=== PATIENT | female | born 1980 | race Caucasian/White ===

== ENCOUNTER → 2020-06-06 11:21 | Outpatient (BNVA) | payer MEDICARE, MEDICAID, SELFPAY | PROVIDERS: PCP Internal Medicine; Referring Provider Internal Medicine; Visit Provider Orthopaedic Surgery | DX: Z76.89 Persons encountering health services in other specified circumstances (principal) ==

== ENCOUNTER 2020-06-13 13:56 | Outpatient (REF) | payer OTHER, SELFPAY ==
--- NOTE | 2020-06-13 14:09 | ECG_ITS ---
Test Reason : PREPROC EXAM Blood Pressure : / mmHG Vent. Rate : 062 BPM Atrial Rate : 062 BPM P-R Int : 132 ms QRS Dur : 082 ms QT Int : 406 ms P-R-T Axes : 077 082 071 degrees QTc Int : 412 ms Normal sinus rhythm with sinus arrhythmia Normal ECG When compared with ECG of 19-SEP-2018 17:31, Vent. rate has decreased BY 49 BPM Nonspecific T wave abnormality, improved in Anterior leads Referred By: Damion Smith Electronically Signed By:ANDREW ZALDIVAR MD
[2020-06-13 15:21] LABS: MANUAL DIFF FLAG NO
[2020-06-13 15:33] LABS: Basophils Absolute Auto 0.1 X10*3/uL (0.0-0.2); Basophils Percent Auto 0.4 % (0-2); Eosinophils Absolute Auto 0.1 X10*3/uL (0.0-0.4); Eosinophils Percent Auto 0.4 % (0-4); Hematocrit 42.5 % (37-47); Hemoglobin 14.2 g/dl (12.0-16.0); Imm Gran Abs Auto 0.04 X10*3/uL (0.00-0.03); Imm Gran Pct Auto 0.3 % (0.0-0.4); Lymphocytes Absolute Auto 3.3 X10*3/uL (1.2-4.9); Lymphocytes Percent Auto 24.4 % (20-40); Mean Corpuscular HGB Conc 33.4 g/dl (31.0-35.0); Mean Corpuscular Hemoglobin 29.7 pg (27.0-33.0); Mean Corpuscular Volume 88.9 fL (80-98); Mean Platelet Volume 8.8 fL (9.4-12.3); Monocytes Percent Auto 7.1 % (2-11); Neutrophils Absolute Auto 9.1 X10*3/uL (2.0-8.3); Neutrophils Percent Auto 67.4 % (45-73); Platelet Count 435 X10*3/uL (160-400); Red Blood Count 4.78 X10*6/uL (4.20-5.50); Red Cell Distribution Width 13.4 % (11.0-16.0); White Blood Count 13.5 X10*3/uL (4.8-10.8)
== END 2020-06-13 13:57 | disposition home or self-care (01) ==
LOC: HO.LAB 13:56
PROVIDERS: PCP Internal Medicine; Visit Provider Physician Assistant
DX: Z01.810 Encounter for preprocedural cardiovascular examination (principal); Z01.818 Encounter for other preprocedural examination
CPT/HCPCS: 36415; 85025; 93005

== ENCOUNTER 2020-06-24 14:12 | Outpatient (REF) | payer OTHER, SELFPAY ==
--- NOTE | 2020-06-24 14:13 | XR_ITS ---
EXAMINATION: XR KNEE, LEFT CLINICAL INFORMATION: Unilateral posttraumatic osteoarthritis. COMPARISON: 05/05/2020 TECHNIQUE: Lateral and sunrise views of the left knee. FINDINGS: There is no evidence of acute fracture or dislocation of the left knee. There is significant narrowing of the medial and lateral joint space compartments. Tunneling defect seen involving the proximal tibia. Distal femoral plate in place. There is a small left knee effusion. There is some spurring about the lateral facet of the patellofemoral joint. Prominent vascular calcifications are seen. XR/XR knee LT 2V IMPRESSION: Degenerative change involving all 3 compartments of the left knee. Small left knee effusion.
== END 2020-06-24 14:13 | disposition home or self-care (01) ==
LOC: HO.HOSX 14:12
PROVIDERS: PCP Internal Medicine; Visit Provider Physician Assistant
DX: Z01.818 Encounter for other preprocedural examination (principal); M17.32 Unilateral post-traumatic osteoarthritis, left knee; Z87.891 Personal history of nicotine dependence; Z77.22 Contact with and (suspected) exposure to environmental tobacco smoke (acute) (chronic)
CPT/HCPCS: 73560; 99212

== ENCOUNTER 2020-06-28 05:53 | Inpatient (IN) | payer OTHER, SELFPAY ==
[2020-06-14 11:12] VITALS: BMI 20.5
[2020-06-14 12:42] VITALS: BP 129/80; PULSE 82; RESP 16; O2SAT 98; BMI 21.8
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
[2020-06-14 15:18] LABS: Anion Gap 12 (12-20); Blood Urea Nitrogen 7 mg/dL (9-16); Calcium 9.4 mg/dL (8.4-10.2); Carbon Dioxide 27 mmol/L (22-29); Chloride 103 mmol/L (96-108); Creatinine Clr Calc Pharmacy 82.5; Estimated Glomerular Filt Rate > 60; Glucose Random 80 mg/dL (60-115); Potassium 4.4 mmol/l (3.3-5.1); Sodium 138 mmol/L (135-145)
[2020-06-15 09:45] LABS: MRSA Nasal PCR POSITIVE (Negative); SA Nasal PCR POSITIVE (Negative)
[2020-06-28] VITALS (15 sets, daily range): BP systolic 92–139; BP diastolic 45–87; PULSE 52–93; RESP 14–20; TEMP 36–37.1; O2SAT 97–100
--- NOTE | 2020-06-28 | XR_ITS ---
EXAMINATION: PORTABLE X-RAY KNEE, LEFT CLINICAL INFORMATION: 40-year-old female patient status post total knee arthroplasty. Severe pain. COMPARISON: X-rays of the left knee done earlier in the day. TECHNIQUE: AP and crosstable lateral views of the left knee. of the left knee. FINDINGS: The hardware from the total knee arthroplasty remains in the normal expected position. No fracture. Pockets of intra-articular and subcutaneous air are present in the soft tissues. A femoral Endobutton was pre-existing prior to the knee replacement. XR/XR knee LT 2V IMPRESSION: Postop knee. No evidence of hardware failure.
--- NOTE | 2020-06-28 | XR_ITS ---
EXAMINATION: XR KNEE, LEFT CLINICAL INFORMATION: Status post total knee arthroplasty. COMPARISON: Standing AP knees and left knee radiographs 06/24/2020 TECHNIQUE: Left knee is imaged in AP and crosstable lateral views for 2 views. FINDINGS: There is left total knee arthroplasty since prior exam. The hardware is intact and in normal alignment. There is no fracture or dislocation. Suprapatellar effusion overlying skin ovi are seen as expected. There is no fracture or dislocation or destructive process. XR/XR knee LT 2V IMPRESSION: Status post left total knee arthroplasty.
[2020-06-28] MEDS: Gabapentin 600 MG TABLET PO (06:23)
[2020-06-28 06:34] LABS: COVID-19 Test Negative (Negative)
[2020-06-28] MEDS: vancomycin HCL 1,000 MG in 0.9 % Sodium Chloride 250 ML 270 MG IV ×2 (07:12→20:21)
[2020-06-28] MEDS: Lactated Ringers 1,000 ML 100 ML IVCONT (07:12)
--- NOTE | 2020-06-28 07:25 | MHC.SHP ---
Pre-Procedural Eval Section A The patient is an INPATIENT: No Changes since office visit: Yes Patient answered all questions; No Cold of Flu in the past 2 weeks, No New Medical Problems and No Changes in Medication The History & Physical has been completed within 30 days and I have reviewed it.: Yes Section B Chief Complaint: Total Left Knee Arthoplasty Allergies: Allergies Allergy/AdvReac Type Severity Reaction Status Date / Time codeine [Codeine] Allergy Severe ANAPHYLAXIS Verified 06/24/20 14:29 ibuprofen [From MOTRIN] Allergy Severe ANAPHYLAXIS Verified 06/24/20 14:29 NSAIDS (Non-Steroidal Allergy Severe ANAPHYLAXIS Verified 06/24/20 14:29 Anti-Inflamma [NSAIDS] tramadol [TRAMADOL] Allergy Intermediate SEIZURE Verified 06/24/20 14:29 Plan Patient has been examined and remains a candidate for the planned procedure
--- NOTE | 2020-06-28 09:17 | PM.OP ---
Brief Operative Note Date of procedure: 06/28/20 Pre-op diagnosis: rightk nee OA Post-op diagnosis: same Procedure: right TKA Implants: [place] [employer] [employer] press fit CR with a 09/20/09a Surgeon: Elvin Logan MD Anesthesia: regional and spinal Building Rental Manager: Damion Smith Estimated blood loss (mL): 150 IV fluids (mL): 1,000 Pathology: other Condition: stable Disposition: PACU
--- NOTE | 2020-06-28 09:53 | OP_ITS ---
SURGEON: Elvin Logan MD INDICATIONS: 40-year-old woman with valgus posttraumatic osteoarthritis ongoing with unremitting pain and refractory to conservative care, who was consented to undergo arthroplasty. PREOPERATIVE DIAGNOSIS: Left knee osteoarthritis. POSTOPERATIVE DIAGNOSIS: Left knee osteoarthritis. PROCEDURE PERFORMED: Left knee arthroplasty. ESTIMATED BLOOD LOSS: 150 mL. COMPLICATIONS: None known. ANESTHESIA: Regional and spinal. ASSISTANTS: CHELLE Valero. SPECIMENS: PROCEDURE IN DETAIL: The patient was brought to the operating room, placed supine on the operative table and prepped and draped in standard sterile fashion. Time-out was called to identify proper site, proper procedure, proper surgeon. IV antibiotics per weight was administered. I began by making a curvilinear incision over the knee. She had a prior ACL tibial scar, which had to be included in the incision. I dissected down the retinaculum and performed a medial parapatellar arthrotomy. I resected the fat pad, performed a small medial peel, everted the patella and flexed up the knee. She had eburnation of the really the entire knee apart from the central portion of the trochlea. I then used Reyes's line to drill my intramedullary femoral guide and then made my distal femoral cut in 5 degrees of valgus. I then sized a size 2 femur, made my anterior, posterior, and chamfer cuts, making sure not to notch and posterior soft tissues were protected at all times. Aquamantys was used for hemostasis. Once this was done, I turned my attention the tibia. I took 2 mm off the lateral side in line with the tibial crest, protecting posterior soft tissue in the PCL. Once this was done, I placed an extension block and took knee up to extension. I was happy with the bony resection. Therefore, I trialed a 2 tibia with a 2 provisional femur and took the knee through range of motion and was happy with the range and stability. Therefore, the undersurface of the patella was resurfaced and a 29A patella was placed. Again, I took the knee through range of motion, I was happy with the tracking. I then drilled my lug holes and prepared my tibial canal and then all instrumentation was removed and I malleted in the femur and tibia in standard fashion and then applying axial compression. Patella was also press-fit and I trialed a 9 and 11. I was happiest. I felt that the 10 would be ideal and a 10 was placed. A 3-minute iodine soak with local TXA was applied. Layered closure with ovi on the skin was performed. The patient was placed in sterile dressing, extubated, brought to recovery room in stable condition. There were no known complications. FLUIDS: 1 L. IMPLANTS: [place] [employer], press-fit CR 09/20/09. MD SHIV Foy/MELISSA / [id number]
[2020-06-28] MEDS: Dextrose 5 % and 0.45 % NaCl 1,000 ML 80 ML IVCONT (12:51)
--- NOTE | 2020-06-28 13:16 | MHC.CM.PN ---
PATIENT IS INDEPENDENT WITH HER ACTIVITIES NO DME OR VNA SERVICES. CASE MANAGEMENT FOLLOWING FOR HER DISCHARGE NEEDS. IMM 06/28 IN CHART.
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
[2020-06-28] MEDS: HYDROmorphone HCl 0.5 MG/0.5 ML SYRINGE 0.25 MG IVPUSH ×2 (14:06→18:45)
[2020-06-28] MEDS: oxyCODONE HCl Immed Release 5 MG TABLET 10 MG PO ×2 (14:58→19:24)
[2020-06-28] MEDS: LORazepam 1 MG TABLET PO ×2 (15:11→21:40)
[2020-06-28] MEDS: Scopolamine 1.5 MG PATCH.TD.3 EAR-BEHIND (15:43)
[2020-06-28] MEDS: HYDROmorphone HCl 0.5 MG/0.5 ML SYRINGE IVPUSH ×3 (17:21→23:57)
[2020-06-28] MEDS: hydrOXYzine HCL 25 MG TABLET PO ×2 (17:22→21:40)
[2020-06-28] MEDS: Acetaminophen 325 MG TABLET 650 MG PO ×2 (18:47→23:58)
[2020-06-28] MEDS: oxyCODONE HCl ER 10 MG TAB.ER.12H PO (21:40)
[2020-06-29] MEDS: 0.9 % Sodium Chloride Flush 3 ML SYRINGE IVFLUSH ×2 (00:04→15:59)
[2020-06-29] MEDS: oxyCODONE HCl Immed Release 5 MG TABLET 10 MG PO ×5 (01:19→23:55)
[2020-06-29] MEDS: HYDROmorphone HCl 0.5 MG/0.5 ML SYRINGE IVPUSH ×7 (03:33→22:34)
[2020-06-29] MEDS: Dextrose 5 % and 0.45 % NaCl 1,000 ML 80 ML IVCONT (03:36)
[2020-06-29 04:00] VITALS: BP 136/77; PULSE 88; RESP 18; TEMP 37.1; O2SAT 99
[2020-06-29] MEDS: Acetaminophen 325 MG TABLET 650 MG PO ×3 (06:45→18:53)
[2020-06-29 06:50] LABS: Basophils Percent Auto 0.1 % (0-2); Eosinophils Percent Auto 0.1 % (0-4); Hematocrit 32.8 % (37-47); Imm Gran Abs Auto 0.07 X10*3/uL (0.00-0.03); Imm Gran Pct Auto 0.5 % (0.0-0.4); Lymphocytes Absolute Auto 1.4 X10*3/uL (1.2-4.9); Lymphocytes Percent Auto 10.2 % (20-40); MANUAL DIFF FLAG SCAN; Mean Corpuscular HGB Conc 33.5 g/dl (31.0-35.0); Mean Corpuscular Hemoglobin 29.8 pg (27.0-33.0); Mean Corpuscular Volume 88.9 fL (80-98); Mean Platelet Volume 9.1 fL (9.4-12.3); Monocytes Absolute Auto 1.7 X10*3/uL (0.1-1.2); Neutrophils Absolute Auto 10.7 X10*3/uL (2.0-8.3); Neutrophils Percent Auto 77.1 % (45-73); Platelet Count 210 X10*3/uL (160-400); Red Blood Count 3.69 X10*6/uL (4.20-5.50); Red Cell Distribution Width 13.2 % (11.0-16.0); SCAN SMEAR FLAG 1; White Blood Count 13.9 X10*3/uL (4.8-10.8)
[2020-06-29 07:03] LABS: Anion Gap 11 (12-20); Blood Urea Nitrogen 7 mg/dL (9-16); Calcium 8.2 mg/dL (8.4-10.2); Carbon Dioxide 25 mmol/L (22-29); Chloride 104 mmol/L (96-108); Creatinine Clr Calc Pharmacy 88.7; Estimated Glomerular Filt Rate > 60; Glucose Fasting 155 mg/dL (60-99); Potassium 3.5 mmol/l (3.3-5.1); Sodium 136 mmol/L (135-145)
[2020-06-29 07:17] LABS: SLIDE REVIEW VERIFIED
[2020-06-29 07:26] VITALS: BP 132/80; PULSE 80; RESP 17; TEMP 36.6; O2SAT 99
[2020-06-29] MEDS: Escitalopram Oxalate 20 MG TABLET PO (07:43)
[2020-06-29] MEDS: LORazepam 1 MG TABLET PO ×3 (07:43→22:22)
[2020-06-29] MEDS: Amphetamine Mixed Salts 10 MG TABLET PO ×2 (07:44→14:05)
--- NOTE | 2020-06-29 07:45 | PM.PNORT ---
Subjective Subjective Interval history: POD#1 s/p LTKA. Pt. states that she had a difficult night with pain management and nausea. Was not able to work with p.t. Denies SOB chest pain but has slight nausea due to pain. Physical Exam Vital Signs: Vital Signs: Last Vital Signs Temp 97.9 F 06/29/20 07:26 Pulse 80 06/29/20 07:26 Resp 17 06/29/20 07:26 BP 132/80 06/29/20 07:26 Pulse Ox 99 06/29/20 07:26 Body Mass Index 21.8 Const: General: cooperative, healthy appearing and no acute distress Resp: Effort & Inspection: normal respiratory effort and able to speak in complete sentences Cardio: Rate: regular rate Peripheral pulses: Peripheral pulses 2+ throughout GI: Inspection: Yes normal to inspection Palpation (GI): Soft to palpation Skin: General skin exam: no rashes or lesions noted Extrem: Other: Lt knee no redness ecchymosis or drainage. Dressing is clean dry and intact. NVI. Progress Note: A&P Assessment and plan (1) Status post left knee replacement: Status: Acute Assessment and Plan: Continue pain mgmnt Begin ASA dvt ppx today begin PT for LT TKA Dispo planning-Pending PT eval, pain mgmnt Fall Risk Details Current Medications: Current Medications Generic Name Dose Route Start Last Admin Trade Name Freq PRN Reason Stop Dose Admin Acetaminophen 650 mg 06/28/20 18:30 06/29/20 06:45 Acetaminophen 325 Mg Tablet PO 650 mg Q6H MIGUEL ANGEL Administration Amphetamine/Dextroamphetamine 10 mg 06/29/20 08:00 Amphetamine Mixed Salts 10 Mg Tablet PO BID@0800,1500 [facility] Escitalopram Oxalate 20 mg 06/29/20 09:00 Escitalopram Oxalate 20 Mg Tablet PO DAILY MIGUEL ANGEL Hydromorphone HCl 0.5 mg 06/28/20 17:10 06/29/20 06:46 Hydromorphone Hcl 0.5 Mg/0.5 Ml Syringe IVPUSH 0.5 mg Q3H PRN Administration Pain, Severe (Pain Scale 7-10) Hydroxyzine HCl 25 mg 06/28/20 12:12 06/28/20 21:40 Hydroxyzine Hcl 25 Mg Tablet PO 25 mg QID PRN Administration anxiety Dextrose/Sodium Chloride 1,000 mls @ 80 mls/hr 06/28/20 12:05 06/29/20 03:36 D51/2ns IVCONT 80 mls/hr .[id number] MIGUEL ANGEL Administration Lorazepam 1 mg 06/28/20 12:05 06/28/20 21:40 Lorazepam 1 Mg Tablet PO 1 mg TID PRN Administration Anxiety Naloxone HCl 0.2 mg 06/28/20 12:05 Naloxone Hcl 0.4 Mg/Ml Vial IVPUSH Q2M PRN Excessive sedation or RR < 8 Oxycodone HCl 10 mg 06/28/20 12:05 06/29/20 04:55 Oxycodone Hcl Immed Release 5 Mg Tablet PO 10 mg Q4H PRN Administration Pain, Moderate (Pain Scale 4-6 Oxycodone HCl 10 mg 06/28/20 21:00 06/28/20 21:40 Oxycodone Hcl Er 10 Mg Tab.Er.12h PO 10 mg BID MIGUEL ANGEL Administration Senna 17.2 mg 06/28/20 12:05 Sennosides 8.6 Mg Tablet PO BEDTIME PRN Constipation Sodium Chloride 3 ml 06/28/20 16:00 06/29/20 00:04 0.9 % Sodium Chloride Flush 3 Ml Syringe IVFLUSH 3 ml QSHIFT MIGUEL ANGEL Administration Time Spent With Patient Time: Total time spent is greater than 50% in coordination of care (as documented) at patient's floor/unit and/or counseling patient: Time with patient: 15 - 24 minutes
[2020-06-29] MEDS: Aspirin 325 MG TABLET PO ×2 (09:31→21:03)
[2020-06-29] MEDS: oxyCODONE HCl ER 10 MG TAB.ER.12H PO ×2 (09:31→21:03)
--- NOTE | 2020-06-29 09:46 | HO.POSTANES ---
Post Anesthesia Evaluation Post Anesthesia Evaluation Vital Signs: Vital Signs Temp Pulse Resp BP Pulse Ox 06/29/20 07:26 97.9 F 80 17 132/80 99 06/29/20 04:00 98.8 F 88 18 136/77 99 06/28/20 23:36 98.4 F 85 18 138/79 99 Anesthesia: Spinal Mental Status: Awake Pain Control: Satisfactory Nausea/Vomiting: None Hydration: Adequate Anesthesia-Related Issues: No Anes. Related Issues
--- NOTE | 2020-06-29 11:10 | HO.PM.IMPN ---
Subjective Subjective Date of Service: 06/29/20 Interval History: the patient was seen and evaluated this morning Laying in bed, feels comfortable Denies any fever, chills or shortness of breath No reported other overnight events. Review of Systems Review of Systems: Yes all other systems are reviewed and are negative Physical Exam Vital Signs: Vital Signs: Last Vital Signs Temp 97.9 F 06/29/20 07:26 Pulse 80 06/29/20 07:26 Resp 17 06/29/20 07:26 BP 132/80 06/29/20 07:26 Pulse Ox 99 06/29/20 07:26 Body Mass Index 21.8 Constitutional : Alert, oriented, not in distress Neck : Normal inspection, Supple Cardiovascular : RRR, S1 S2, no lower extremity edema Respiratory : Good bilateral air entry, no crackles, wheezes or rhonchi Gastrointestinal: soft, lax, Normal bowel sounds, Non tender Skin : Warm/Dry, No rash complaining of pain at her knee, mild tenderness and covered with dressing. No drainage. Neurological : Alert & oriented x3, No focal deficit Objective Data Current Medications Generic Name Dose Route Start Last Admin Trade Name Johnq PRN Reason Stop Dose Admin Acetaminophen 650 mg 06/28/20 18:30 06/29/20 06:45 Acetaminophen 325 Mg Tablet PO 650 mg Q6H MIGUEL ANGEL Administration Amphetamine/Dextroamphetamine 10 mg 06/29/20 08:00 06/29/20 07:44 Amphetamine Mixed Salts 10 Mg Tablet PO 10 mg BID@0800,1500 MIGUEL ANGEL Administration Aspirin 325 mg 06/29/20 10:00 06/29/20 09:31 Aspirin 325 Mg Tablet PO 325 mg BID MIGUEL ANGEL Administration Escitalopram Oxalate 20 mg 06/29/20 09:00 06/29/20 07:43 Escitalopram Oxalate 20 Mg Tablet PO 20 mg DAILY MIGUEL ANGEL Administration Hydromorphone HCl 0.5 mg 06/28/20 17:10 06/29/20 09:31 Hydromorphone Hcl 0.5 Mg/0.5 Ml Syringe IVPUSH 0.5 mg Q3H PRN Administration Pain, Severe (Pain Scale 7-10) Hydroxyzine HCl 25 mg 06/28/20 12:12 06/28/20 21:40 Hydroxyzine Hcl 25 Mg Tablet PO 25 mg QID PRN Administration anxiety Dextrose/Sodium Chloride 1,000 mls @ 80 mls/hr 06/28/20 12:05 06/29/20 03:36 D51/2ns IVCONT 80 mls/hr .[id number] MIGUEL ANGEL Administration Lorazepam 1 mg 06/28/20 12:05 06/29/20 07:43 Lorazepam 1 Mg Tablet PO 1 mg TID PRN Administration Anxiety Naloxone HCl 0.2 mg 06/28/20 12:05 Naloxone Hcl 0.4 Mg/Ml Vial IVPUSH Q2M PRN Excessive sedation or RR < 8 Oxycodone HCl 10 mg 06/28/20 12:05 06/29/20 04:55 Oxycodone Hcl Immed Release 5 Mg Tablet PO 10 mg Q4H PRN Administration Pain, Moderate (Pain Scale 4-6 Oxycodone HCl 10 mg 06/28/20 21:00 06/29/20 09:31 Oxycodone Hcl Er 10 Mg Tab.Er.12h PO 10 mg BID MIGUEL ANGEL Administration Senna 17.2 mg 06/28/20 12:05 Sennosides 8.6 Mg Tablet PO BEDTIME PRN Constipation Sodium Chloride 3 ml 06/28/20 16:00 06/29/20 07:45 0.9 % Sodium Chloride Flush 3 Ml Syringe IVFLUSH Not Given QSHIFT [facility] Labs CBC & Chem 7: 06/29/20 06:16 06/29/20 06:17 Assessment and Plan (1) Post-traumatic osteoarthritis of left knee: Status: Acute Assessment and Plan: 40 year old women status post left knee arthroplasty. Left knee arthroplasty Management as per surgical team Pain management Complaining of significant pain in the knee Increase Dilaudid tylenol scheduled Hypotension resolved Depression/anxiety Continue home medications. History of seizure disorder Seizure precautions. DVT prophylaxis per surgical team. Thank you, Please contact hospitalist team for any further questions.
[2020-06-29 12:00] VITALS: BP 114/71; PULSE 68; RESP 19; TEMP 36.2; O2SAT 99
--- NOTE | 2020-06-29 15:11 | MHC.CM.PN ---
Addendum entered by Summer Benjamin 06/29/20 15:44: [place] SKILL ADDED TO LIST Original Note: PATIENT IS ASKING FOR A REFERRAL TO ANY FACILITY IN [place], WHERE SHE LIVES. REFERRAL PLACED TO [facility], WHICH ACCEPTS PATIENT'S INSURANCE. CASE MANAGEMENT FOLLOWING
[2020-06-29 15:31] VITALS: BP 129/74; PULSE 86; RESP 18; TEMP 36.4; O2SAT 99
[2020-06-29 19:34] VITALS: BP 134/81; PULSE 105; RESP 18; TEMP 36.4; O2SAT 99
[2020-06-29 23:21] VITALS: BP 132/68; PULSE 105; RESP 16; TEMP 37.1; O2SAT 99
[2020-06-30] MEDS: hydrOXYzine HCL 25 MG TABLET PO (01:21)
[2020-06-30] MEDS: Acetaminophen 325 MG TABLET 650 MG PO ×3 (01:21→11:23)
[2020-06-30] MEDS: HYDROmorphone HCl 0.5 MG/0.5 ML SYRINGE IVPUSH ×2 (03:36→06:30)
[2020-06-30 04:00] VITALS: BP 107/63; PULSE 111; RESP 16; TEMP 37.3; O2SAT 99
[2020-06-30 06:59] LABS: MANUAL DIFF FLAG NO
[2020-06-30 07:09] LABS: Basophils Absolute Auto 0.1 X10*3/uL (0.0-0.2); Basophils Percent Auto 0.4 % (0-2); Eosinophils Absolute Auto 0.2 X10*3/uL (0.0-0.4); Eosinophils Percent Auto 1.8 % (0-4); Hematocrit 30.3 % (37-47); Hemoglobin 10.2 g/dl (12.0-16.0); Imm Gran Abs Auto 0.05 X10*3/uL (0.00-0.03); Imm Gran Pct Auto 0.4 % (0.0-0.4); Lymphocytes Absolute Auto 2.1 X10*3/uL (1.2-4.9); Lymphocytes Percent Auto 16.2 % (20-40); Mean Corpuscular HGB Conc 33.7 g/dl (31.0-35.0); Mean Corpuscular Hemoglobin 30.3 pg (27.0-33.0); Mean Corpuscular Volume 89.9 fL (80-98); Mean Platelet Volume 9.2 fL (9.4-12.3); Monocytes Absolute Auto 1.4 X10*3/uL (0.1-1.2); Neutrophils Absolute Auto 9.1 X10*3/uL (2.0-8.3); Neutrophils Percent Auto 70.2 % (45-73); Platelet Count 179 X10*3/uL (160-400); Red Blood Count 3.37 X10*6/uL (4.20-5.50); Red Cell Distribution Width 13.3 % (11.0-16.0); White Blood Count 12.9 X10*3/uL (4.8-10.8)
[2020-06-30 07:40] LABS: Anion Gap 11 (12-20); Blood Urea Nitrogen 5 mg/dL (9-16); Calcium 7.9 mg/dL (8.4-10.2); Carbon Dioxide 27 mmol/L (22-29); Chloride 103 mmol/L (96-108); Creatinine Clr Calc Pharmacy 92.9; Estimated Glomerular Filt Rate > 60; Glucose Fasting 98 mg/dL (60-99); Potassium 3.5 mmol/l (3.3-5.1); Sodium 137 mmol/L (135-145)
--- NOTE | 2020-06-30 07:58 | PM.PNORT ---
Subjective Subjective Interval history: POD#2 s/p LTKA. Pt. states that she has nausea due to pain. Still having some difficulty with pain management. Denies SOB and chest pain. Physical Exam Vital Signs: Vital Signs: Last Vital Signs Temp 99.1 F 06/30/20 04:00 Pulse 111 H 06/30/20 04:00 Resp 16 06/30/20 04:00 BP 107/63 06/30/20 04:00 Pulse Ox 99 06/30/20 04:00 Body Mass Index 21.8 Const: General: cooperative, healthy appearing and no acute distress Resp: Effort & Inspection: normal respiratory effort and able to speak in complete sentences Cardio: Rate: regular rate Peripheral pulses: Peripheral pulses 2+ throughout GI: Inspection: Yes normal to inspection Palpation (GI): Soft to palpation Skin: General skin exam: no rashes or lesions noted Extrem: Other: No ecchymosis, redness, or drainage. Dressing is clean, dry and intact. NVI Progress Note: A&P Assessment and plan (1) Status post left knee replacement: Status: Acute Assessment and Plan: Continue pain mgmnt Continue Aspirin for dvt ppx Continue PT for LT TKA Dispo planning- P.T. recs STR/awaiting referral Fall Risk Details Current Medications: Current Medications Generic Name Dose Route Start Last Admin Trade Name Freq PRN Reason Stop Dose Admin Acetaminophen 650 mg 06/28/20 18:30 06/30/20 06:25 Acetaminophen 325 Mg Tablet PO 650 mg Q6H MIGUEL ANGEL Administration Amphetamine/Dextroamphetamine 10 mg 06/29/20 08:00 06/29/20 14:05 Amphetamine Mixed Salts 10 Mg Tablet PO 10 mg BID@0800,1500 MIGUEL ANGEL Administration Aspirin 325 mg 06/29/20 10:00 06/29/20 21:03 Aspirin 325 Mg Tablet PO 325 mg BID MIGUEL ANGEL Administration Escitalopram Oxalate 20 mg 06/29/20 09:00 06/29/20 07:43 Escitalopram Oxalate 20 Mg Tablet PO 20 mg DAILY MIGUEL ANGEL Administration Ferrous Sulfate 324 mg 06/30/20 08:00 Ferrous Sulfate 324 Mg Tablet. PO BIDWM MIGUEL ANGEL Hydromorphone HCl 0.5 mg 06/28/20 17:10 06/30/20 06:30 Hydromorphone Hcl 0.5 Mg/0.5 Ml Syringe IVPUSH 0.5 mg Q3H PRN Administration Pain, Severe (Pain Scale 7-10) Hydroxyzine HCl 25 mg 06/28/20 12:12 06/30/20 01:21 Hydroxyzine Hcl 25 Mg Tablet PO 25 mg QID PRN Administration anxiety Lorazepam 1 mg 06/28/20 12:05 06/29/20 22:22 Lorazepam 1 Mg Tablet PO 1 mg TID PRN Administration Anxiety Naloxone HCl 0.2 mg 06/28/20 12:05 Naloxone Hcl 0.4 Mg/Ml Vial IVPUSH Q2M PRN Excessive sedation or RR < 8 Oxycodone HCl 10 mg 06/28/20 12:05 06/29/20 23:55 Oxycodone Hcl Immed Release 5 Mg Tablet PO 10 mg Q4H PRN Administration Pain, Moderate (Pain Scale 4-6 Oxycodone HCl 10 mg 06/28/20 21:00 06/29/20 21:03 Oxycodone Hcl Er 10 Mg Tab.Er.12h PO 10 mg BID MIGUEL ANGEL Administration Senna 17.2 mg 06/28/20 12:05 Sennosides 8.6 Mg Tablet PO BEDTIME PRN Constipation Sodium Chloride 3 ml 06/28/20 16:00 06/30/20 00:00 0.9 % Sodium Chloride Flush 3 Ml Syringe IVFLUSH 3 ml QSHIFT MIGUEL ANGEL Administration Time Spent With Patient Time: Total time spent is greater than 50% in coordination of care (as documented) at patient's floor/unit and/or counseling patient: Time with patient: 15 - 24 minutes
[2020-06-30 08:00] VITALS: BP 114/64; PULSE 80; RESP 18; TEMP 36.2; O2SAT 99
[2020-06-30] MEDS: Aspirin 325 MG TABLET PO (08:16)
[2020-06-30] MEDS: Ferrous Sulfate 324 MG TABLET.DR PO ×2 (08:16→17:22)
[2020-06-30] MEDS: Amphetamine Mixed Salts 10 MG TABLET PO ×2 (08:16→15:43)
[2020-06-30] MEDS: 0.9 % Sodium Chloride Flush 3 ML SYRINGE IVFLUSH ×3 (08:16→15:39)
[2020-06-30] MEDS: oxyCODONE HCl Immed Release 5 MG TABLET 10 MG PO ×3 (08:17→17:21)
[2020-06-30] MEDS: Escitalopram Oxalate 20 MG TABLET PO (08:17)
[2020-06-30] MEDS: oxyCODONE HCl ER 10 MG TAB.ER.12H PO (08:17)
--- NOTE | 2020-06-30 10:10 | HO.PM.IMPN ---
Subjective Subjective Date of Service: 06/30/20 Interval History: patient feels better since yesterday is still having left knee pain feels are Dilaudid is short lived, no bowel issues no lightheadedness or dizziness, no acute issues overnight. Review of Systems General no headache , no dizziness CVS no chest pain, no palpitation. Respiratory no cough, no shortness of breath. Gastrointestinal no nausea no vomiting, no abdominal pain Physical Exam Vital Signs: Vital Signs: Last Vital Signs Temp 97.1 F 06/30/20 08:00 Pulse 80 06/30/20 08:00 Resp 18 06/30/20 08:00 BP 114/64 06/30/20 08:00 Pulse Ox 99 06/30/20 08:00 Body Mass Index 21.8 General patient resting comfortably in no acute distress. Neck is supple . CVS regular rate rhythm, Respiratory lungs clear to auscultation, no wheeze, no rhonchi. Gastrointestinal abdomen soft, nontender Extremities left knee dressing in place no drainage Neuro nonfocal Objective Data Current Medications Generic Name Dose Route Start Last Admin Trade Name Freq PRN Reason Stop Dose Admin Acetaminophen 650 mg 06/28/20 18:30 06/30/20 06:25 Acetaminophen 325 Mg Tablet PO 650 mg Q6H MIGUEL ANGEL Administration Amphetamine/Dextroamphetamine 10 mg 06/29/20 08:00 06/30/20 08:16 Amphetamine Mixed Salts 10 Mg Tablet PO 10 mg BID@0800,1500 MIGUEL ANGEL Administration Aspirin 325 mg 06/29/20 10:00 06/30/20 08:16 Aspirin 325 Mg Tablet PO 325 mg BID MIGUEL ANGEL Administration Escitalopram Oxalate 20 mg 06/29/20 09:00 06/30/20 08:17 Escitalopram Oxalate 20 Mg Tablet PO 20 mg DAILY MIGUEL ANGEL Administration Ferrous Sulfate 324 mg 06/30/20 08:00 06/30/20 08:16 Ferrous Sulfate 324 Mg Tablet. PO 324 mg BIDWM MIGUEL ANGEL Administration Hydromorphone HCl 0.5 mg 06/28/20 17:10 06/30/20 06:30 Hydromorphone Hcl 0.5 Mg/0.5 Ml Syringe IVPUSH 0.5 mg Q3H PRN Administration Pain, Severe (Pain Scale 7-10) Hydroxyzine HCl 25 mg 06/28/20 12:12 06/30/20 01:21 Hydroxyzine Hcl 25 Mg Tablet PO 25 mg QID PRN Administration anxiety Lorazepam 1 mg 06/28/20 12:05 06/29/20 22:22 Lorazepam 1 Mg Tablet PO 1 mg TID PRN Administration Anxiety Naloxone HCl 0.2 mg 06/28/20 12:05 Naloxone Hcl 0.4 Mg/Ml Vial IVPUSH Q2M PRN Excessive sedation or RR < 8 Oxycodone HCl 10 mg 06/28/20 12:05 06/30/20 08:17 Oxycodone Hcl Immed Release 5 Mg Tablet PO 10 mg Q4H PRN Administration Pain, Moderate (Pain Scale 4-6 Oxycodone HCl 10 mg 06/28/20 21:00 06/30/20 08:17 Oxycodone Hcl Er 10 Mg Tab.Er.12h PO 10 mg BID MIGUEL ANGEL Administration Senna 17.2 mg 06/28/20 12:05 Sennosides 8.6 Mg Tablet PO BEDTIME PRN Constipation Sodium Chloride 3 ml 06/28/20 16:00 06/30/20 08:16 0.9 % Sodium Chloride Flush 3 Ml Syringe IVFLUSH 3 ml QSHIFT MIGUEL ANGEL Administration Labs CBC & Chem 7: 06/30/20 06:32 06/30/20 06:32 Assessment and Plan (1) Status post left knee replacement: Status: Acute (2) Post-traumatic osteoarthritis of left knee: Status: Acute (3) Left knee pain: Status: Acute Assessment and Plan: 40 year old women status post left knee arthroplasty. Left knee arthroplasty postoperative day 2/ left knee pain persistent pain but improving, will continue Tylenol Oxy Contin and as needed oxycodone will discontinue Dilaudid, patient seen by physical therapy they are recommending short-term rehab further discharge plan as per Orthol team hematocrit dropped but stable patient asymptomatic will add iron supplement, encouraged to use incentive spirometry patient has irritable bowel syndrome, has no constipation history of asthma with no acute exacerbation Hypotension resolved Depression/anxiety Continue home medications, no acute symptoms. History of seizure disorder Seizure precautions. DVT prophylaxis per ortho team .
[2020-06-30 11:03] LABS: IDNOW Serial# 9DD0AD1C
[2020-06-30 11:04] LABS: COVID-19 Test Negative (Negative)
[2020-06-30 11:22] VITALS: RESP 20
[2020-06-30] MEDS: HYDROmorphone HCl 0.5 MG/0.5 ML SYRINGE 0.25 MG IVPUSH ×2 (11:22→15:38)
[2020-06-30 11:32] VITALS: BP 102/68; PULSE 86; RESP 19; TEMP 36.2; O2SAT 100
--- NOTE | 2020-06-30 12:37 | MHC.CM.PN ---
Addendum entered by Summer Benjamin 06/30/20 14:28: Facility does not have auth to send yet. [facility] on hold RN and patient aware. Original Note: PATIENT IS DISCHARGED TO [facility] FOR 14:30 [facility]IA [facility]. RN AND UNIT AWARE OF PLAN.
[2020-06-30] MEDS: LORazepam 1 MG TABLET PO (13:08)
--- NOTE | 2020-06-30 14:26 | P.DS_ITS ---
DS: Providers Provider Date of admission: 06/28/20 05:53 Primary care physician: Bran Vogt MD Consults: 06/28/20 12:05 Consult to Hospitalist Routine Consulting Provider: Hospitalist Reason for consultation: Post op medical management DS: Diagnosis Discharge Diagnosis (1) Status post left knee replacement: Status: Acute Problem details: Ms. Ceballos is a 40-year-old female who presented to our office for left knee pain. She is status post ACL surgery over 15 years ago. She has a history of developing Staph infections in the left knee postoperatively. Most recently she is continued to have left knee pain and difficulty with ambulation due to posttraumatic arthritis. After failing all conservative measures she had agreed to move forward with left total knee arthroplasty. DS: Medications Discharge Medications Home Medications: Home Medications Medication Instructions Recorded Confirmed hydroxyzine pamoate 25 mg capsule 25 mg PO QID PRN 06/06/20 06/14/20 dextroamphetamine-amphetamine 10 mg PO BID 06/14/20 06/14/20 [Adderall] escitalopram oxalate 20 mg PO DAILY 06/14/20 06/28/20 lorazepam 1 mg PO TID PRN 06/14/20 06/28/20 tizanidine 2 mg PO BID 06/14/20 06/14/20 Previous Rx's Medication Instructions Recorded walker #1 ea 06/24/20 acetaminophen 650 mg PO Q6H 30 Days #240 tab 06/30/20 aspirin 325 mg PO BID 14 Days #28 tab 06/30/20 oxycodone 10 mg PO Q4H PRN 7 Days #42 tab 06/30/20 sennosides [Senna Lax] 17.2 mg PO BEDTIME PRN 30 Days #60 06/30/20 tab DS: Summary Hospital Course Hospital Course: Ms Ceballos underwent a successful left total knee arthroplasty she was transferred to PACU and to the floor she recovered during her stay her vitals were stable afebrile at 97.1 labs unremarkable hemoglobin 10.2 hematocrit 30.3. Postop day 1 she was started on aspirin 325 mg p.o. b.i.d. for DVT prophylaxis she also received physical therapy services twice a day. Prior to discharge her Aquacel dressing was clean dry and intact no acute resting applied and the plan is to be transferred to a short-term rehab. Time Spent with Patient Time attestation: Total time spent providing and/or coordinating discharge services: Physical Exam Vital Signs: Vital Signs: Last Vital Signs Temp 97.1 F 06/30/20 11:32 Pulse 86 06/30/20 11:32 Resp 19 06/30/20 11:32 BP 102/68 06/30/20 11:32 Pulse Ox 100 06/30/20 11:32 Body Mass Index 21.8 Const: General: cooperative, healthy appearing and no acute distress Resp: Effort & Inspection: normal respiratory effort and able to speak in complete sentences Cardio: Rate: regular rate Peripheral pulses: Peripheral pulses 2+ throughout GI: Inspection: Yes normal to inspection Palpation (GI): Soft to palpation Skin: General skin exam: no rashes or lesions noted Extrem: Other: Left knee incision clean dry and intact. [place] intact. No erythema or drainage. Calf supple nontender. DS: Data Data Completed and Pending Completed studies during hospitalization [Text1]: Pending at discharge 06/28/20 09:08 Surgical [PTH] Routine Labs on day of discharge: 06/14/20 13:30 MRSA Nasal Screen Routine 06/14/20 13:45 Type and Screen Routine Basic Metabolic Panel Routine 06/24/20 15:15 Type and Screen Routine 06/28/20 XR knee LT 2V Stat XR knee LT 2V Stat 06/28/20 05:45 COVID-19 ID NOW ([facility]) Stat 06/28/20 05:53 Gabapentin [Neurontin] 600 mg PO PREOP ONE vancomycin HCL 1,000 mg 0.9 % Sodium Chloride [Ns] 250 ml IV PREOP 06/28/20 05:53 Providone-Iodine Solution 5% nasal swab .Both Nares x2 pre-op Surgical prep, hair removal PREOP 06/28/20 06:00 Lactated Ringers [Lr] 1,000 ml IVCONT 100 mls/hr 06/28/20 06:14 Gabapentin [Neurontin] 300 mg .ROUTE .STK-MED ONE vancomycin HCL 1,000 mg .ROUTE .STK-MED ONE 06/28/20 07:16 Midazolam HCl/PF [Versed] 2 mg IVPUSH .STK-MED ONE 06/28/20 08:15 Vital Signs Q5MIN Acetaminophen [Tylenol] 650 mg PO ONCE PRN HYDROmorphone HCl [Dilaudid] 0.25 mg IVPUSH Q5M PRN ondansetron HCL [Zofran] 4 mg IVPUSH ONCE PRN oxyCODONE HCl Immed Release [Roxicodone] 5 mg PO ONCE PRN 06/28/20 08:50 Bupivacaine MPF 0.5 % [Sensorcaine MPF 0.5% 30 ML] 30 ml .ROUTE .STK-MED ONE Lidocaine HCl 2 % MPF [Xylocaine 2 % MPF] 5 ml .ROUTE .STK-MED ONE propofoL [Diprivan] 200 mg IVPUSH .STK-MED ONE 06/28/20 08:51 Phenylephrine HCL 1,000 mcg IVPUSH .STK-MED ONE Tranexamic Acid [Cyklokapron] 1,000 mg .ROUTE .STK-MED ONE 06/28/20 09:04 Tranexamic Acid [Cyklokapron] 1,000 mg .ROUTE .STK-MED ONE 06/28/20 09:08 Surgical [PTH] Routine 06/28/20 09:40 Transfer Order Routine 06/28/20 12:05 Acetaminophen [Tylenol] 650 mg PO Q6H PRN Dextrose 5 % and 0.45 % NaCl [D51/2Ns] 1,000 ml IVCONT 80 mls/hr HYDROmorphone HCl [Dilaudid] 0.25 mg IVPUSH Q4H PRN 06/28/20 12:05 Vital Signs Q4H 06/28/20 15:25 Scopolamine [Transderm-Scop] 1.5 mg EAR-BEHIND ONCE ONE 06/28/20 17:10 HYDROmorphone HCl [Dilaudid] 0.5 mg IVPUSH Q3H PRN 06/28/20 18:21 HYDROmorphone HCl [Dilaudid] 0.25 mg IVPUSH ONCE ONE 06/28/20 20:00 vancomycin HCL 1,000 mg 0.9 % Sodium Chloride [Ns] 250 ml IV POSTOP 06/28/20 20:13 vancomycin HCL 1,000 mg .ROUTE .STK-MED ONE 06/28/20 21:00 Amphetamine Mixed Salts [Adderall] 10 mg PO BID 06/29/20 06:16 Complete Blood Count Auto Diff DAILY@0600 SLIDE REVIEW Routine 06/29/20 06:17 Basic Metabolic Panel Fasting DAILY@0600 06/30/20 06:32 Basic Metabolic Panel Fasting DAILY@0600 Complete Blood Count Auto Diff DAILY@0600 06/30/20 10:30 COVID-19 ID NOW ([facility]) Stat Laboratory Last Values WBC 12.9 X10*3/uL (4.8-10.8) H 06/30/20 06:32 RBC 3.37 X10*6/uL (4.20-5.50) L 06/30/20 06:32 Hgb 10.2 g/dl (12.0-16.0) L 06/30/20 06:32 Hct 30.3 % (37-47) L 06/30/20 06:32 MCV 89.9 fL (80-98) 06/30/20 06:32 MCH 30.3 pg (27.0-33.0) 06/30/20 06:32 MCHC 33.7 g/dl (31.0-35.0) 06/30/20 06:32 RDW 13.3 % (11.0-16.0) 06/30/20 06:32 Plt Count 179 X10*3/uL (160-400) 06/30/20 06:32 MPV 9.2 fL (9.4-12.3) L 06/30/20 06:32 Immature Gran % (Auto) 0.4 % (0.0-0.4) 06/30/20 06:32 Neut % (Auto) 70.2 % (45-73) 06/30/20 06:32 Lymph % (Auto) 16.2 % (20-40) L 06/30/20 06:32 [place]ison % (Auto) 11.0 % (2-11) 06/30/20 06:32 Eos % (Auto) 1.8 % (0-4) 06/30/20 06:32 Baso % (Auto) 0.4 % (0-2) 06/30/20 06:32 Lymph # (Auto) 2.1 X10*3/uL (1.2-4.9) 06/30/20 06:32 Addison # (Auto) 1.4 X10*3/uL (0.1-1.2) H 06/30/20 06:32 Eos # (Auto) 0.2 X10*3/uL (0.0-0.4) 06/30/20 06:32 Baso # (Auto) 0.1 X10*3/uL (0.0-0.2) 06/30/20 06:32 Abs Immat Gran (auto) 0.05 X10*3/uL (0.00-0.03) H 06/30/20 06:32 Absolute Neuts (auto) 9.1 X10*3/uL (2.0-8.3) H 06/30/20 06:32 Absolute Nucleated RBC 0.000 X10*3/uL (0.0-0.012) 06/30/20 06:32 Nucleated RBC % (auto) 0.0 /100WBC (0.0-0.2) 06/30/20 06:32 Smear Tech's Comments VERIFIED 06/29/20 06:16 Sodium 137 mmol/L (135-145) 06/30/20 06:32 Potassium 3.5 mmol/l (3.3-5.1) 06/30/20 06:32 Chloride 103 mmol/L (96-108) 06/30/20 06:32 Carbon Dioxide 27 mmol/L (22-29) 06/30/20 06:32 Anion Gap 11 (-20) L 06/30/20 06:32 BUN 5 mg/dL (9-16) L 06/30/20 06:32 Creatinine 0.63 mg/dL (0.5-1.4) 06/30/20 06:32 Estim Creat Clear Calc 92.9 06/30/20 06:32 Estimated GFR > 60 06/30/20 06:32 Random Glucose 80 mg/dL (60-115) 06/14/20 13:45 Fasting Glucose 98 mg/dL (60-99) D 06/30/20 06:32 Calcium 7.9 mg/dL (8.4-10.2) L 06/30/20 06:32 Nasal Screen MRSA (PCR) POSITIVE (Negative) A 06/14/20 13:30 Nasal S. aureus Screen POSITIVE (Negative) A 06/14/20 13:30 Nasal MRSA/S.aureus Interp SEE NOTE 06/14/20 13:30 COVID-19 ([facility]) Negative (Negative) 06/30/20 10:30 COVID-19 Clin Com See Note 06/30/20 10:30 Blood Type B Negative 06/24/20 15:15 Antibody Screen NEGATIVE 06/24/20 15:15 Discharge Plan Discharge Patient Disposition: Xfer SNF Referrals: [facility] [Other] Damion Smith PA-C [Physician Deflector Operator] - (07/13/20 2:30) Discharge Medications: New sennosides [Senna Lax] 8.6 mg Tablet 17.2 mg PO BEDTIME PRN (Reason: Constipation) 30 Days Qty: 60 RF: 0 acetaminophen 325 mg Tablet 650 mg PO Q6H 30 Days Qty: 240 RF: 0 aspirin 325 mg Tablet 325 mg PO BID 14 Days Qty: 28 RF: 0 oxycodone 10 mg tablet 10 mg PO Q4H PRN (Reason: Pain, Moderate (Pain Scale 4-6) 7 Days Qty: 42 RF: 0 Continued tizanidine 2 mg Tablet 2 mg PO BID RF: 0 dextroamphetamine-amphetamine [Adderall] 10 mg Tablet 10 mg PO BID RF: 0 lorazepam 1 mg Tablet 1 mg PO TID PRN (Reason: Anxiety) RF: 0 escitalopram oxalate 20 mg Tablet 20 mg PO DAILY RF: 0 (DME) walker Misc See Rx Instructions .MEDSUPPLY Qty: 1 RF: 0 hydroxyzine pamoate 25 mg capsule 25 mg PO QID PRN (Reason: anxiety) RF: 0 Discontinued oxycodone 5 mg Capsule 5 mg PO Q4H PRN (Reason: Pain) RF: 0 Discharge Orders: Discharge Order (Routine); Ordered 06/30/20 Ordered By: Daimon Smith Diet: regular diet Activity on Discharge: Use cane or walker Activity Restrictions/Additional Instructions: * Physical Therapy for ROM 0-120, quad strength, gait training . Use walker for ambulation * Limit stair climbing, No shower, No tub bath, No driving * Continue anticoagulant * Keep Aquacel dressing clean, dry and intact. * Follow up with orthopedics in 2 weeks Visit Report Forms: Patient Portal Discharge page Care Plan Goals: Restore function of left knee Health Concerns: None Plan of Treatment: Physical Therapy Pain management DVT prophylaxis
[2020-06-30 15:38] VITALS: RESP 17
[2020-06-30 15:55] VITALS: BP 114/62; PULSE 86; RESP 18; TEMP 36.5; O2SAT 100
== END 2020-06-30 18:30 | disposition skilled nursing facility (03) | DRG 470 ==
LOC: HO.SSSA 05:57 → HO.S3 10:12
PROVIDERS: Nurse Practitioner; Physician Assistant; Admitting Provider Orthopaedic Surgery; PCP Internal Medicine; Visit Provider Orthopaedic Surgery
PROC: 0SRD0JA Replacement of Left Knee Joint with Synthetic Substitute, Uncemented, Open Approach (ICD-10-PCS; CPT 27447; principal; 2020-06-28 07:30)
DX: M17.32 Unilateral post-traumatic osteoarthritis, left knee (principal); F41.9 Anxiety disorder, unspecified; F32.9 Major depressive disorder, single episode, unspecified; K58.9 Irritable bowel syndrome, unspecified; Z97.5 Presence of (intrauterine) contraceptive device; Z20.828 Contact with and (suspected) exposure to other viral communicable diseases; Z79.899 Other long term (current) drug therapy
CPT/HCPCS: 36415; 73560; 80048; 85025; 86850; 86900; 86901; 87635; 87640; 87641; 88305; 88311; 97110; 97116; 97162; 97530; C1776; J1170; J2250; J2370; J3370

== ENCOUNTER → 2020-07-13 12:18 | Outpatient (BNVA) | payer OTHER, SELFPAY | PROVIDERS: PCP Internal Medicine; Referring Provider Internal Medicine; Visit Provider Physician Assistant | DX: Z47.1 Aftercare following joint replacement surgery (principal); Z96.652 Presence of left artificial knee joint | CPT/HCPCS: 99212 ==

== ENCOUNTER → 2020-07-29 12:46 | Outpatient (BNVA) | payer MEDICARE, MEDICAID, SELFPAY | PROVIDERS: PCP Internal Medicine; Visit Provider Physician Assistant | DX: Z96.652 Presence of left artificial knee joint (principal) | CPT/HCPCS: 99212 ==

== ENCOUNTER → 2020-08-08 14:01 | Outpatient (BNVA) | payer MEDICARE, MEDICAID, SELFPAY | PROVIDERS: Visit Provider Physician Assistant | DX: Z47.1 Aftercare following joint replacement surgery (principal); Z96.652 Presence of left artificial knee joint | CPT/HCPCS: 99212 ==

== ENCOUNTER 2020-08-12 15:55 | Emergency (ER) | payer OTHER, SELFPAY ==
[2020-08-12 16:12] VITALS: BP 145/74; PULSE 88; RESP 18; TEMP 37.4; O2SAT 97; BMI 21.9
--- NOTE | 2020-08-12 17:03 | ED.GENADULT ---
HPI - General Adult General Chief complaint: Extremity Problem Stated complaint: Knee pain/post op Time Seen by Provider: 08/12/20 16:52 Source: patient Mode of arrival: ambulatory Limitations: no limitations History of Present Illness HPI narrative: 40-year-old female with prior history of substance abuse in addition to other history as noted below she is status post left total knee arthroplasty which failed then she had a knee replacement done here through our orthopedic team on 06/30/2020 she comes in today as she was given prescription of oxycodone 42 tablets on August 10 she went to the pharmacy at [facility] the only had 28 tablets in stock they gave her partial fill. Related Data Home Medications Medication Instructions Recorded Confirmed hydroxyzine pamoate 25 mg capsule 25 mg PO QID PRN 06/06/20 06/14/20 dextroamphetamine-amphetamine 10 mg PO BID 06/14/20 06/14/20 [Adderall] escitalopram oxalate 20 mg PO DAILY 06/14/20 06/28/20 lorazepam 1 mg PO TID PRN 06/14/20 06/28/20 tizanidine 2 mg PO BID 06/14/20 06/14/20 Previous Rx's Medication Instructions Recorded walker #1 ea 06/24/20 acetaminophen 650 mg PO Q6H 30 Days #240 tab 06/30/20 aspirin 325 mg PO BID 14 Days #28 tab 06/30/20 sennosides [Senna Lax] 17.2 mg PO BEDTIME PRN 30 Days #60 06/30/20 tab oxycodone 10 mg tablet 10 mg PO Q4-6H PRN 7 Days #42 tab 08/09/20 Allergies Allergy/AdvReac Type Severity Reaction Status Date / Time codeine [Codeine] Allergy Severe ANAPHYLAXIS Verified 08/08/20 14:27 ibuprofen [From MOTRIN] Allergy Severe ANAPHYLAXIS Verified 08/08/20 14:27 NSAIDS (Non-Steroidal Allergy Severe ANAPHYLAXIS Verified 08/08/20 14:27 Anti-Inflamma [NSAIDS] tramadol [TRAMADOL] Allergy Intermediate SEIZURE Verified 08/08/20 14:27 Review of Systems Review of Systems: Constitutional: No Weight loss, No Fever, No Chills, No Night Sweats, No Fatigue, No Malaise ENT/Mouth: No Hearing loss, No Ear Pain, No Nasal Congestion, No Sinus Pain, No Hoarseness, No sore throat Eyes: No Eye Pain, No Swelling, No Redness, No Foreign Body, No Discharge, No Vision Changes Cardiovascular: No Chest Pain Respiratory: No Cough, No Sputum, No Wheezing, No Smoke Exposure, No Dyspnea Gastrointestinal: No Nausea, No Vomiting, No Diarrhea, No Constipation, No abdominal Pain, No Hematochezia, No Melena Genitourinary: no irregular bleeding Musculoskeletal: No joint pain, No Myalgias, No Joint Swelling Skin: No Skin Lesions, No rash Neuro: No Weakness, No Numbness, No Paresthesias, No Loss of Consciousness, No Dizziness, No Headache Psych: No Social Issues Heme/Lymph: No Bruising, No Bleeding,No Lymphadenopathy Endocrine: No Polyuria, No Polydipsia, No Temperature Intolerance PMFSH Past Medical History Medical History Anxiety Asthma Cyst of breast History of asthma History of seizures Hx of cardiac murmur Hx of head injury IUD (intrauterine device) in place Left knee pain MRSA (methicillin resistant Staphylococcus aureus) Osteoarthritis Post-traumatic osteoarthritis of left knee Surgical History History of repair of ACL History of repair of anterior cruciate ligament of right knee Hx of tonsillectomy Social History Social History Alcohol intake: never Smoking Status: Former smoker Smoked in Last 30 Days: No Second Hand Smoke Exposure: Yes Use of substances other than those prescribed or required for medical reasons: No Advance Directives: No Advance Directives Information Provided: Yes service: No Current occupational status: disabled Physical Exam Vital Signs: Vital Signs: Last Vital Signs Temp 99.3 F 08/12/20 16:12 Pulse 88 08/12/20 16:12 Resp 18 08/12/20 16:12 BP 145/74 H 08/12/20 16:12 Pulse Ox 97 08/12/20 16:12 Body Mass Index 21.9 Reviewed Const: General: cooperative and healthy appearing; No acute distress or intoxicated appearing Nutritional Appearance: average body habitus Orientation/consciousness: patient oriented x3 Chest: Chest palpation & inspection: normal inspection of the chest Resp: Effort & Inspection: normal respiratory effort Skin: General skin exam: no rashes or lesions noted Neuro: General: patient oriented x3 Extrem: Other: General: Yes normal to inspection Course Course Course Narrative: 40-year-old female here for prescription refill of control substance history of substance abuse apparently just got discharged from rehab center, pharmacy only gave her partial feel 2 days ago of 28 tablets of oxycodone instead of 42. This was confirmed by the pharmacy patient was prescribed 1 tab Q 4-6 hours she should still have 12 tablets remaining. At this point she is asking for fill of controlled substance. At this point aware that she still has remaining supply based on the counter as prescribed. She will need to follow up with her primary care/prescriber for medication management/pain. As it relates to the knee no complaints as noted above picture appears to be healing well no acute findings on exam. Patient appears to be very unhappy with the fact that I am not given other controlled substance prescription. It was reported to me that she ask to speak to the charge nurse and nursing supervisor metal furniture fabrication who she did speak to. Discharge Plan Discharge Clinical Impression: Status post left knee replacement, Medication refill Patient Disposition: Home, Self-Care Instructions: Medicine Refill (ED) Prescriptions: No Action oxycodone 10 mg tablet 10 mg PO Q4-6H PRN (Reason: Pain, Moderate (Pain Scale 4-6) 7 Days Qty: 42 RF: 0 tizanidine 2 mg Tablet 2 mg PO BID RF: 0 dextroamphetamine-amphetamine [Adderall] 10 mg Tablet 10 mg PO BID RF: 0 lorazepam 1 mg Tablet 1 mg PO TID PRN (Reason: Anxiety) RF: 0 escitalopram oxalate 20 mg Tablet 20 mg PO DAILY RF: 0 sennosides [Senna Lax] 8.6 mg Tablet 17.2 mg PO BEDTIME PRN (Reason: Constipation) 30 Days Qty: 60 RF: 0 acetaminophen 325 mg Tablet 650 mg PO Q6H 30 Days Qty: 240 RF: 0 aspirin 325 mg Tablet 325 mg PO BID 14 Days Qty: 28 RF: 0 (DAYSI) valdemar Gary See Rx Instructions .MEDSUPPLY Qty: 1 RF: 0 hydroxyzine pamoate 25 mg capsule 25 mg PO QID PRN (Reason: anxiety) RF: 0
--- NOTE | 2020-08-12 17:12 | PC.NURSE ---
PT WAS TOLD BY PROVIDER THAT HE CHECKED WITH PHARMACY AND IF SHE TOOK HE MEDICATION PRESCRIBED SHE SHOULD STILL HAVE OVER 10 TAB LEFT. PT WILL HAVE TO SEE ORTHO FOR ANY FURTHER PAIN MANAGEMENT.
--- NOTE | 2020-08-12 17:15 | PC.NURSE ---
PT OPTED TO LEAV WITHOUT PAPERWORK VERBAL D/C GIVEN.
== END 2020-08-12 17:32 | disposition home or self-care (01) ==
PROVIDERS: Emergency Provider Emergency Medicine Emergency Medical Services; PCP Internal Medicine
DX: M25.562 Pain in left knee (principal); Z76.0 Encounter for issue of repeat prescription; Z79.899 Other long term (current) drug therapy; Z87.891 Personal history of nicotine dependence; Z96.652 Presence of left artificial knee joint
CPT/HCPCS: 99282; 99284

== ENCOUNTER 2020-09-19 12:10 | Outpatient (REF) | payer OTHER, SELFPAY | END 2020-09-19 12:11 | disposition home or self-care (01) | LOC: HO.HOSX 12:10 | PROVIDERS: Visit Provider Orthopaedic Surgery | DX: Z13.89 Encounter for screening for other disorder (principal) ==

== ENCOUNTER 2020-09-22 11:05 | Outpatient (REF) | payer OTHER, SELFPAY ==
--- NOTE | 2020-09-22 11:38 | XR_ITS ---
EXAMINATION: XR KNEE, BILATERAL XR KNEE, LEFT CLINICAL INFORMATION: Knee pain. COMPARISON: 06/28/2020 TECHNIQUE: AP standing view of both knees. Lateral and sunrise views of the left knee. FINDINGS: Left knee: There is a total left knee arthroplasty. The distal femoral component articulates appropriately with the tibial plateau and patellar components. No periprosthetic lucency or fracture. No joint effusion. Vascular calcifications are noted. Right knee: On this single view no fracture or subluxation. Evidence of prior ACL reconstruction. Mild marginal osteophyte formation of the medial and lateral compartments. XR/XR knee LT 2V IMPRESSION: Total left knee arthroplasty in typical positioning and alignment. Mild degenerative change of the right knee.
--- NOTE | 2020-09-22 11:38 | XR_ITS ---
EXAMINATION: XR KNEE, BILATERAL XR KNEE, LEFT CLINICAL INFORMATION: Knee pain. COMPARISON: 06/28/2020 TECHNIQUE: AP standing view of both knees. Lateral and sunrise views of the left knee. FINDINGS: Left knee: There is a total left knee arthroplasty. The distal femoral component articulates appropriately with the tibial plateau and patellar components. No periprosthetic lucency or fracture. No joint effusion. Vascular calcifications are noted. Right knee: On this single view no fracture or subluxation. Evidence of prior ACL reconstruction. Mild marginal osteophyte formation of the medial and lateral compartments. XR/XR knee standing BI IMPRESSION: Total left knee arthroplasty in typical positioning and alignment. Mild degenerative change of the right knee.
== END 2020-09-22 11:06 | disposition home or self-care (01) ==
LOC: HO.HOSX 11:05
PROVIDERS: Visit Provider Orthopaedic Surgery
DX: Z47.1 Aftercare following joint replacement surgery (principal); Z96.652 Presence of left artificial knee joint
CPT/HCPCS: 73560; 73565; 99212

== ENCOUNTER 2020-10-29 22:23 | Emergency (ER) | payer OTHER, SELFPAY ==
--- NOTE | ~2020-10-29 | XR_ITS ---
EXAMINATION: XR KNEE, LEFT CLINICAL INFORMATION: Status post knee replacement, pain COMPARISON: 09/22/2020 TECHNIQUE: AP and lateral views of the left knee. FINDINGS: Status post left total knee arthroplasty with patellar resurfacing. Hardware appears well seated. No significant change from recent prior study 09/22/2020. There may be a trace joint effusion. XR/XR knee LT 2V IMPRESSION: Similar postoperative appearance status post left total hip arthroplasty with patellar resurfacing. No acute complication seen.
[2020-10-29 22:25] VITALS: BP 120/81; PULSE 95; RESP 20; TEMP 36.4; O2SAT 98; BMI 21.9
--- NOTE | 2020-10-29 23:26 | ED_ITS ---
HPI - Extremity Problem General Chief complaint: Extremity Problem Stated complaint: Knee pain Time Seen by Provider: 10/29/20 22:38 Source: patient Mode of arrival: ambulatory Limitations: no limitations History of Present Illness HPI Narrative: Patient is status post left knee replacement 06/2020 was doing good for last 3 months for last few days patient noticed increased pain in left knee feels L knee is little bit abducted increased pain on ambulation call her orthopedics who advised her to go for the x-ray. Patient denies any significant injuries but she is a high school english teacher no swelling of the knee joint no skin change Complaint: extremity pain Related Data Home Medications Medication Instructions Recorded Confirmed hydroxyzine pamoate 25 mg capsule 25 mg PO QID PRN 06/06/20 06/14/20 dextroamphetamine-amphetamine 10 mg PO BID 06/14/20 06/14/20 [Adderall] escitalopram oxalate 20 mg PO DAILY 06/14/20 06/28/20 lorazepam 1 mg PO TID PRN 06/14/20 06/28/20 tizanidine 2 mg PO BID 06/14/20 06/14/20 Previous Rx's Medication Instructions Recorded walker #1 ea 06/24/20 acetaminophen 650 mg PO Q6H 30 Days #240 tab 06/30/20 aspirin 325 mg PO BID 14 Days #28 tab 06/30/20 sennosides [Senna Lax] 17.2 mg PO BEDTIME PRN 30 Days #60 06/30/20 tab oxycodone 5 mg tablet 5 mg PO Q12H PRN 7 Days #14 tab 09/19/20 oxycodone 5 mg PO Q6H PRN #20 tab 10/30/20 Allergies Allergy/AdvReac Type Severity Reaction Status Date / Time codeine [Codeine] Allergy Severe ANAPHYLAXIS Verified 10/29/20 22:25 ibuprofen [From MOTRIN] Allergy Severe ANAPHYLAXIS Verified 10/29/20 22:25 NSAIDS (Non-Steroidal Allergy Severe ANAPHYLAXIS Verified 10/29/20 22:25 Anti-Inflamma [NSAIDS] tramadol [TRAMADOL] Allergy Intermediate SEIZURE Verified 10/29/20 22:25 Review of Systems Review of Systems: Yes all other systems are reviewed and are negative PMFSH Past Medical History Medical History Anxiety Asthma Cyst of breast History of asthma History of seizures Hx of cardiac murmur Hx of head injury IUD (intrauterine device) in place Left knee pain MRSA (methicillin resistant Staphylococcus aureus) Osteoarthritis Post-traumatic osteoarthritis of left knee Surgical History History of repair of ACL History of repair of anterior cruciate ligament of right knee Hx of tonsillectomy Social History Social History Alcohol intake: never Smoking Status: Former smoker Smoked in Last 30 Days: No Second Hand Smoke Exposure: Yes Use of substances other than those prescribed or required for medical reasons: No Advance Directives: No Advance Directives Information Provided: Yes service: No Current occupational status: disabled Physical Exam Vital Signs: Vital Signs: Last Vital Signs Temp 97.5 F 10/29/20 22:25 Pulse 95 10/29/20 22:25 Resp 20 10/29/20 22:25 BP 120/81 10/29/20 22:25 Pulse Ox 98 10/29/20 22:25 Body Mass Index 21.9 Const: General: comfortable and no acute distress Orientation/consciousness: patient oriented x3 HENMT: Head: Yes normocephalic and Yes atraumatic Resp: Effort & Inspection: normal respiratory effort Cardio: Rate: regular rate Rhythm: regular rhythm Neuro: General: patient oriented x3 Extrem: Knee images: 1. Diffuse tenderness left knee no joint effusion skin is normal in color no deformity noticed good range of knee movement MDM - Extremity (Nontraumatic) MDM Narrative Medical decision making narrative: Patient x-ray negative for any acute fracture hardware intact. Patient advised to wear Joseph wrap and follow up with orthopedics Discharge Plan Discharge Clinical Impression: Status post left knee replacement Patient Disposition: Home, Self-Care Instructions: Knee Pain (ED) Additional Instructions: Use Joseph wrap for support. Take pain medication as advised. Follow-up with orthopedic Prescriptions: New oxycodone 5 mg tablet 5 mg PO Q6H PRN (Reason: pain) Qty: 20 RF: 0 No Action oxycodone 5 mg tablet 5 mg PO Q12H PRN (Reason: Pain, Moderate (Pain Scale 4-6) 7 Days Qty: 14 RF: 0 tizanidine 2 mg Tablet 2 mg PO BID RF: 0 dextroamphetamine-amphetamine [Adderall] 10 mg Tablet 10 mg PO BID RF: 0 lorazepam 1 mg Tablet 1 mg PO TID PRN (Reason: Anxiety) RF: 0 escitalopram oxalate 20 mg Tablet 20 mg PO DAILY RF: 0 sennosides [Senna Lax] 8.6 mg Tablet 17.2 mg PO BEDTIME PRN (Reason: Constipation) 30 Days Qty: 60 RF: 0 acetaminophen 325 mg Tablet 650 mg PO Q6H 30 Days Qty: 240 RF: 0 aspirin 325 mg Tablet 325 mg PO BID 14 Days Qty: 28 RF: 0 (DME) valdemar Gary See Rx Instructions .MEDSUPPLY Qty: 1 RF: 0 hydroxyzine pamoate 25 mg capsule 25 mg PO QID PRN (Reason: anxiety) RF: 0
[2020-10-30] MEDS: oxyCODONE HCl Immed Release 5 MG TABLET PO (00:24)
[2020-10-30 00:43] VITALS: BP 118/67; PULSE 94; RESP 18; O2SAT 98
== END 2020-10-30 00:49 | disposition home or self-care (01) ==
PROVIDERS: Emergency Provider Internal Medicine; PCP Internal Medicine
DX: M25.562 Pain in left knee (principal); Z96.652 Presence of left artificial knee joint
CPT/HCPCS: 73560; 99283; 99284

== ENCOUNTER → 2020-10-31 12:41 | Outpatient (BNVA) | payer OTHER, SELFPAY | PROVIDERS: PCP Internal Medicine; Visit Provider Physician Assistant | DX: Z96.652 Presence of left artificial knee joint (principal) | CPT/HCPCS: 99212 ==

== ENCOUNTER 2022-02-06 18:22 | Emergency (ER) | payer OTHER, SELFPAY ==
--- NOTE | ~2022-02-06 | XR_ITS ---
EXAMINATION: XR ANKLE, RIGHT CLINICAL INFORMATION: Pain COMPARISON: None TECHNIQUE: AP, lateral, and mortise views of the right ankle. FINDINGS: The ankle mortise is preserved. There is no fracture. Prominent heel spur. XR/XR ankle RT 2V IMPRESSION: No fracture. Heel spur.
--- NOTE | ~2022-02-06 | XR_ITS ---
EXAMINATION: XR FOOT, RIGHT CLINICAL INFORMATION: Foot pain and swelling COMPARISON: None TECHNIQUE: AP, lateral, and oblique views of the right foot. FINDINGS: The bones and soft tissues are unremarkable. No fracture. Alignment is anatomic. Joint spaces are maintained. A plantar calcaneal spur is again noted. XR/XR foot RT min 3V IMPRESSION: No acute abnormality.
[2022-02-06 19:50] VITALS: BP 152/87; PULSE 86; RESP 16; TEMP 36.2; O2SAT 98; BMI 23.8
[2022-02-06 22:42] VITALS: BP 127/79; PULSE 80; RESP 16; O2SAT 98
[2022-02-07] VITALS: BP 113/64; PULSE 59; RESP 16; TEMP 37.1; O2SAT 98
[2022-02-07] MEDS: Acetaminophen 325 MG TABLET PO (00:06)
[2022-02-07] MEDS: oxyCODONE HCl Immed Release 5 MG TABLET PO (00:07)
--- NOTE | 2022-02-07 00:08 | PC.NURSE ---
PT MEDICATED PER OCT, NOTIFIED PATRICIA PITTS
--- NOTE | 2022-02-07 00:49 | ED_ITS ---
HPI - Extremity Injury (Lower) General Chief Complaint: Extremity Injury, Lower Stated Complaint: foot INJ Time Seen by Provider: 02/06/22 23:31 Source: patient Mode of arrival: ambulatory History of Present Illness HPI Narrative: 42-year-old female with a past medical history of anxiety, asthma, seizures, osteoarthritis, presenting to the ED complaining of right foot pain s/p moving over the past couple days. Denies known injury/trauma or fall or twisting, admits pain is from walking. Reports mild swelling to medial aspect of foot. Denies numbness, tingling, weakness, fever MD complaint: foot injury Onset (ago): day(s) Related Data Home Medications Medication Instructions Recorded Confirmed hydroxyzine pamoate 25 mg capsule 25 mg PO QID PRN anxiety 06/06/20 06/14/20 dextroamphetamine-amphetamine 10 10 mg PO BID 06/14/20 06/14/20 mg tablet (Adderall) escitalopram oxalate 20 mg tablet 20 mg PO DAILY 06/14/20 06/28/20 lorazepam 1 mg tablet 1 mg PO TID PRN Anxiety 06/14/20 06/28/20 tizanidine 2 mg tablet 2 mg PO BID 06/14/20 06/14/20 Previous Rx's Medication Instructions Recorded walker #1 ea 06/24/20 acetaminophen 325 mg tablet 650 mg PO Q6H 30 days #240 tabs 06/30/20 aspirin 325 mg tablet 325 mg PO BID 14 days #28 tabs 06/30/20 sennosides 8.6 mg tablet (Senna 17.2 mg PO BEDTIME PRN 06/30/20 Lax) Constipation 30 days #60 tabs oxycodone 5 mg tablet 5 mg PO Q12H PRN Pain, Moderate 09/19/20 (Pain Scale 4-6 7 days #14 tabs oxycodone 5 mg tablet 5 mg PO Q6H PRN pain #20 tabs 10/30/20 Allergies Allergy/AdvReac Type Severity Reaction Status Date / Time codeine [Codeine] Allergy Severe ANAPHYLAXIS Verified 10/31/20 13:03 ibuprofen [From MOTRIN] Allergy Severe ANAPHYLAXIS Verified 10/31/20 13:03 NSAIDS (Non-Steroidal Allergy Severe ANAPHYLAXIS Verified 10/31/20 13:03 Anti-Inflamma [NSAIDS] tramadol [TRAMADOL] Allergy Intermediate SEIZURE Verified 10/31/20 13:03 Review of Systems Review of Systems: Constitutional: No Fever, No Chills ENT/Mouth: No Ear Pain, No Nasal Congestion, No Sinus Pain, No sore throat, No Rhinorrhea, No Swallowing Difficulty Cardiovascular: No Chest Pain, No SOB Respiratory: No Cough, No Sputum, No Wheezing Gastrointestinal: No Nausea, No Vomiting, No Diarrhea, No Constipation, No Abdominal pain Genitourinary: No Dysuria, No Urinary Frequency Musculoskeletal: + joint pain, No Myalgias, + Joint Swelling Skin: No Skin Lesions, No rash Neuro: No Weakness, No Numbness, No Paresthesias Yes all other systems are reviewed and are negative Neurologic: Denies Sensory deficit (Neuro) [facility] Past Medical History Attestation statement: The following information was validated with the patient. Medical History Anxiety Asthma Cyst of breast History of asthma History of seizures Hx of cardiac murmur Hx of head injury IUD (intrauterine device) in place Left knee pain MRSA (methicillin resistant Staphylococcus aureus) Osteoarthritis Post-traumatic osteoarthritis of left knee Surgical History History of repair of ACL History of repair of anterior cruciate ligament of right knee Hx of tonsillectomy Social History Social History Are you a primary health care attorney to a significant other at home: No Do you presently have visiting nurse or other home services: No Alcohol intake: never Patient Tobacco Use Status: Current everyday Tobacco user Second Hand Smoke Exposure: Yes Use of substances other than those prescribed or required for medical reasons: Yes Substance Use Type: Marijuana Advance Directives: No service: No Current occupational status: disabled Physical Exam Vital Signs: Vital Signs: Last Vital Signs Temp 98.7 F 02/07/22 00:00 Pulse 59 02/07/22 00:00 Resp 16 02/07/22 00:00 BP 113/64 02/07/22 00:00 Pulse Ox 98 02/07/22 00:00 O2 Del Method 02/07/22 00:00 BMI result Body Mass Index 23.8 Const: General: cooperative, healthy appearing and no acute distress Orientation/consciousness: patient oriented x3 Limitations: no limitations HEENT: Head: Yes normal to inspection and Yes atraumatic Ears: hearing grossly normal bilaterally General nose exam: Normal external nose present Face and sinus: Yes normal facial exam Eyes: General: appearance normal, both eyes and all related structures EOM: EOMs intact bilaterally Neck: Neck: Yes normal visual inspection and Yes no meningeal signs Resp: Effort & Inspection: normal respiratory effort and no respiratory distress Cardio: Rate: regular rate Heart sounds: S1 normal heart sound present and S2 normal heart sound present Peripheral pulses: dorsalis pedis present Skin: Rashes: no rashes Wounds: no wounds Neuro: General: patient oriented x3, tone normal and no meningeal signs Gait exam (Neuro): Normal gait present (Slow steady gait) Sensory Exam: No Sensory deficit (Neuro) Extrem: Other: Right foot with mild swelling noted to medial aspect. Tender to palpation. No erythema/streaking or crepitus. Full range of motion intact to toes and ankle. Ankle is nontender. Neurovascularly intact. Course Course Course Narrative: XR foot RT min 3V IMPRESSION: No acute abnormality. XR ankle RT 2V IMPRESSION: No fracture. Heel spur. > results discussed with patient including worrisome signs and symptoms and strict return precautions. Patient requesting narcotic pain medication upon discharge, I discussed that she was given dose of oxycodone in the emergency department however will not be discharged with additional narcotics as foot sprain is not indication for narcotics. Patient became very upset/swearing, I offered Joseph wrap and crutches which she refused and ambulated out of ED MDM - Extremity Injury (Lower) MDM Narrative Medical decision making narrative: 42-year-old female with a past medical history of anxiety, asthma, seizures, osteoarthritis, presenting to the ED complaining of right foot pain s/p moving over the past couple days. On exam vital signs stable, NAD/nontoxic-appearing, physical exam as above. Concern for ankle/foot sprain versus fracture. No evidence of a cellulitis or infection. Plan: X-rays Differential Diagnosis Differential diagnosis: Likely ankle sprain and strain and ankle fracture Medical Records Attestation: I reviewed the patient's medical records. Lab Data Attestation: I reviewed the patient's lab results. Discharge Plan Discharge Clinical Impression: Foot sprain Patient Disposition: Home, Self-Care Instructions: Foot Sprain (ED), R.I.C.E. Treatment (ED) Additional Instructions: Your x-rays unremarkable. Ice and elevate her foot. Wear Joseph wrap for compression and stability Take Tylenol as needed for pain Follow up with your doctor Prescriptions: No Action oxycodone 5 mg tablet 5 mg PO Q12H PRN (Reason: Pain, Moderate (Pain Scale 4-6) 7 Days Qty: 14 0RF tizanidine 2 mg Tablet 2 mg PO BID dextroamphetamine-amphetamine [Adderall] 10 mg Tablet 10 mg PO BID lorazepam 1 mg Tablet 1 mg PO TID PRN (Reason: Anxiety) escitalopram oxalate 20 mg Tablet 20 mg PO DAILY sennosides [Senna Lax] 8.6 mg Tablet 17.2 mg PO BEDTIME PRN (Reason: Constipation) 30 Days Qty: 60 0RF acetaminophen 325 mg Tablet 650 mg PO Q6H 30 Days Qty: 240 0RF aspirin 325 mg Tablet 325 mg PO BID 14 Days Qty: 28 0RF oxycodone 5 mg tablet 5 mg PO Q6H PRN (Reason: pain) Qty: 20 0RF (DME) walker Misc See Rx Instructions .MEDSUPPLY Qty: 1 0RF Rx Instructions: Folding Front wheeled walker hydroxyzine pamoate 25 mg capsule 25 mg PO QID PRN (Reason: anxiety) Rx Instructions: takes at bedtime Referrals: Damion Smith PA-C [Physician Mounter Automatic] - 1 week Bran Vogt MD [Primary Care Provider] - 1 week Interventions: ED Discharge Assessment Last Done: 02/07/22 00:54 Discharge Date/Time: 02/07/22 00:59
== END 2022-02-07 00:59 | disposition home or self-care (01) ==
PROVIDERS: Emergency Provider Internal Medicine; PCP Internal Medicine
DX: S93.601A Unspecified sprain of right foot, initial encounter (principal); X58.XXXA Exposure to other specified factors, initial encounter; Y93.9 Activity, unspecified; Y92.9 Unspecified place or not applicable; Y99.9 Unspecified external cause status; Z79.899 Other long term (current) drug therapy; F17.200 Nicotine dependence, unspecified, uncomplicated; Z71.6 Tobacco abuse counseling
CPT/HCPCS: 73600; 73630; 99283; 99284